=== PATIENT | female | born 1965 | race Caucasian/White ===

== ENCOUNTER 2016-10-12 08:19 | Outpatient (CLI) | payer OTHER | END 2016-10-12 08:20 | disposition home or self-care (01) | DX: I10 Essential (primary) hypertension (principal); E78.5 Hyperlipidemia, unspecified; Z00.00 Encounter for general adult medical examination without abnormal findings ==

== ENCOUNTER 2016-11-18 14:51 | Outpatient (CLI) | payer OTHER | END 2016-11-18 14:52 | disposition home or self-care (01) | DX: Z12.31 Encounter for screening mammogram for malignant neoplasm of breast (principal) ==

== ENCOUNTER 2017-03-17 22:13 | Outpatient (CLI) | payer OTHER | END 2017-03-17 22:14 | disposition home or self-care (01) | LOC: LAB.R 22:13 | PROVIDERS: ATTEND Family Medicine | DX: J02.9 Acute pharyngitis, unspecified (principal) | CPT/HCPCS: 87070; 87077 ==

== ENCOUNTER 2018-01-15 15:02 | Outpatient (CLI) | payer BC ==
--- NOTE | 2018-01-16 18:00 | Mammography Report ---
DIGITAL SCREENING MAMMOGRAM: 01/15/2018 CLINICAL INDICATION: A 52-year-old for screening. COMPARISON: 11/2016, 03/2015, 12/2013. TECHNIQUE: Routine CC and MLO projections were obtained of the breasts. FINDINGS: The breasts demonstrate fatty replacement bilaterally. Coarse and punctate, typically benign calcifications are present. No suspicious masses, clustered microcalcifications, or regions of architectural distortion are identified. IMPRESSION: BENIGN FINDINGS. RECOMMENDATION: Routine annual screening unless otherwise clinically indicated. BI-RADS category 2 benign findings. STANDARD QUALIFYING STATEMENTS 1. This examination was reviewed with the aid of Computed-Aided Detection (CAD). 2. A negative or benign imaging report should not delay biopsy if clinically suspicious findings are present. Consider surgical consultation if warranted. More than 5% of cancers are not identified by imaging. 3. Dense breasts may obscure an underlying neoplasm. TD: 01/16/2018 17:59
== END 2018-01-15 15:03 | disposition home or self-care (01) ==
LOC: DI 15:02
PROVIDERS: ATTEND Family Medicine
DX: Z12.31 Encounter for screening mammogram for malignant neoplasm of breast (principal)
CPT/HCPCS: 77067

== ENCOUNTER 2018-02-14 08:55 | Outpatient (CLI) | payer BC ==
[2018-02-14 09:10] LABS: EOSINOPHILS # (AUTO) 0.2 10^3/uL (0.0-0.7); EOSINOPHILS % (AUTO) 3.3 %; HGB - HEMOGLOBIN 14.7 g/dL (12.0-16.0); LYMPHOCYTES # (AUTO) 1.8 10^3/uL (1.5-3.5); LYMPHOCYTES % (AUTO) 36.2 %; MEAN CORPUSCULAR HEMOGLOBIN 29.4 pg (27.0-31.0); MEAN CORPUSCULAR HGB CONC 33.4 g/dL (32.0-36.0); MEAN CORPUSCULAR VOLUME 88.3 fL (81.0-99.0); MEAN PLATELET VOLUME 6.8 fL (7.9-10.8); MONOCYTES # (AUTO) 0.4 10^3/uL (0.0-1.0); MONOCYTES % (AUTO) 8.4 %; NEUTROPHILS # (AUTO) 2.5 10^3/uL (1.5-6.6); NEUTROPHILS % (AUTO) 51.1 %; PLT - PLATELET COUNT 285 10^3/uL (130-450); RED BLOOD COUNT 4.99 10^6/uL (4.20-5.40); RED CELL DISTRIBUTION WIDTH 13.5 % (12.0-15.0)
[2018-02-14 09:27] LABS: ALBUMIN 4.3 g/dL (3.2-5.5); ALBUMIN/GLOBULIN RATIO 1.4 (1.0-2.2); ALKALINE PHOSPHATASE 66 IU/L (42-121); ALT ALANINE AMINOTRANSFERASE 26 IU/L (10-60); AST ASPARTATE AMINOTRANSFERASE 23 IU/L (10-42); BILIRUBIN,TOTAL 0.6 mg/dL (0.2-1.0); BUN - BLOOD UREA NITROGEN 20 mg/dL (6-20); CALCIUM 8.9 mg/dL (8.5-10.3); CARBON DIOXIDE - CO2 27 mmol/L (21-32); CHLORIDE 102 mmol/L (101-111); CHOL/HDL RATIO 3.8 (<4.4); CHOLESTEROL 233 mg/dL; CREATININE 0.7 mg/dL (0.4-1.0); GFR - MDRD 87 (>89); GLUCOSE 111 mg/dL (70-100); HDL CHOLESTEROL 61 mg/dL; LDL CHOLESTEROL,CALCULATED 142 mg/dL; LDL/HDL RATIO 2.3 (<4.4); SODIUM 139 mmol/L (135-145); TOTAL PROTEIN 7.4 g/dL (6.7-8.2); VLDL CHOLESTEROL 30 mg/dL
[2018-02-14 09:31] LABS: HB2 TOTAL 16.8 g/dL; HEMOGLOBIN A1C 0.72 g/dL; HEMOGLOBIN A1C % 6.1 % (4.6-6.2)
== END 2018-02-14 08:56 | disposition home or self-care (01) ==
LOC: LAB 08:55
PROVIDERS: ATTEND Family Medicine
DX: I10 Essential (primary) hypertension (principal); E78.5 Hyperlipidemia, unspecified; R73.09 Other abnormal glucose
CPT/HCPCS: 36415; 80053; 80061; 83036; 83721; 85025

== ENCOUNTER 2019-04-29 08:54 | Outpatient (CLI) | payer BC ==
--- NOTE | 2019-04-29 11:39 | MRI Report ---
Reason: EYELID DROOP Procedure Date: 04/29/2019 Accession Number: [id number] / [id number] Procedure: MRI - Brain W/O CPT Code: FULL RESULT: EXAM: MRI BRAIN WITHOUT CONTRAST EXAM DATE: 04/29/2019 10:04 AM. CLINICAL HISTORY: Eyelid droop. COMPARISON: None. TECHNIQUE: Multiplanar, multisequence T1-weighted and fluid-sensitive MR sequences of the brain were performed. Sequences optimized for routine evaluation. Other: This study was protocoled on site using the institution's protocol.. IV Contrast: None. FINDINGS: The diffusion-weighted images are normal. There is no evidence of acute or subacute cerebral infarction. The axial FLAIR images demonstrate multiple punctate nonspecific T2 hyperintensities within the subcortical, deep, and periventricular white matter. These are greater in number than expected for a patient of this age. The differential diagnosis would include migraine versus premature onset of chronic small vessel ischemia versus a demyelinating process. Cerebral volume and ventricular size are normal. There is a normal appearance of the visualized portions of the course of the bilateral trigeminal nerves. There is a normal appearance of the course of the bilateral optic nerves. Cerebral volume and ventricular size are normal. There is mild mucosal thickening in the right maxillary sinus. The bilateral parotid spaces exhibit normal signal intensity. The cerebral vascular flow voids are patent. There is an extra-axial mass exhibiting T1 isointensity and small areas of calcification demonstrated over the right frontal convexity at the vertex measuring 8 x 8 x 8 mm (10, 901 and 14, 301). The T2* sequence is normal. There is no evidence of subacute or chronic hemorrhage. The cerebral vascular flow voids are patent. The optic nerves demonstrate symmetric signal intensity and size. IMPRESSION: 1. There is no evidence of acute or subacute cerebral infarction. 2. The axial FLAIR images demonstrate multiple punctate nonspecific T2 hyperintensities within the subcortical, deep, and periventricular white matter. These are greater in number than expected for a patient of this age. The differential diagnosis would include migraine versus premature onset of chronic small vessel ischemia versus a demyelinating process. 3. There is a small extra-axial mass demonstrated over the right frontal convexity exhibiting partial calcification measuring 8 x 8 x 8 mm. This combination of findings would be most consistent with a small meningioma.
== END 2019-04-29 08:55 | disposition home or self-care (01) ==
LOC: DI 08:54
PROVIDERS: ATTEND Family Medicine
DX: R90.89 Other abnormal findings on diagnostic imaging of central nervous system (principal); H02.409 Unspecified ptosis of unspecified eyelid
CPT/HCPCS: 70551

== ENCOUNTER 2019-04-29 09:09 | Outpatient (CLI) | payer BC ==
--- NOTE | 2019-04-30 08:07 | Mammography Report ---
Reason: ANNUAL MAMMOGRAM Procedure Date: 04/29/2019 Accession Number: [id number] / [id number] Procedure: NESS - Screening Mammo w/Blane CPT Code: FULL RESULT: EXAM: Screening Mammo w/Blane DATE: 04/29/2019 10:23 AM CLINICAL HISTORY: Screening encounter. TECHNIQUE: (B) - Bilateral CC, laterally exaggerated CC, MLO views were obtained. COMPARISON: 01/15/2018 through 12/27/2013. PARENCHYMAL PATTERN: (F) - The breast(s) demonstrate(s) diffuse fatty replacement. FINDINGS: There are no suspicious masses, calcifications, or areas of distortion. IMPRESSION: Negative examination. BI-RADS category 1. RECOMMENDATION: (ANNUAL) - Recommend routine annual screening mammography. BI-RADS CATEGORY: (1) - Negative. STANDARD QUALIFYING STATEMENTS: 1. This examination was not reviewed with the aid of Computer-Aided Detection (CAD). 2. A negative or benign imaging report should not preclude biopsy if clinically suspicious findings are present. 3. Dense breasts may obscure an underlying neoplasm. 4. This examination was reviewed with the aid of 3D breast imaging (tomosynthesis).
== END 2019-04-29 09:10 | disposition home or self-care (01) ==
LOC: DI 09:09
DX: Z12.31 Encounter for screening mammogram for malignant neoplasm of breast (principal)
CPT/HCPCS: 77063; 77067

== ENCOUNTER 2020-07-24 13:57 | Outpatient (CLI) | payer BC, OTHER ==
[2020-07-24 20:22] LABS: BASOPHILS % (AUTO) 0.8 %; EOSINOPHILS # (AUTO) 0.1 10^3/uL (0.0-0.7); EOSINOPHILS % (AUTO) 2.1 %; HGB - HEMOGLOBIN 13.9 g/dL (12.0-16.0); LYMPHOCYTES % (AUTO) 38.2 %; MEAN CORPUSCULAR HEMOGLOBIN 29.7 pg (27.0-31.0); MEAN CORPUSCULAR HGB CONC 33.2 g/dL (32.0-36.0); MEAN CORPUSCULAR VOLUME 89.5 fL (81.0-99.0); MEAN PLATELET VOLUME 9.3 fL (7.9-10.8); MONOCYTES # (AUTO) 0.5 10^3/uL (0.0-1.0); NEUTROPHILS # (AUTO) 2.6 10^3/uL (1.5-6.6); NEUTROPHILS % (AUTO) 49.7 %; PLT - PLATELET COUNT 314 10^3/uL (130-450); RED BLOOD COUNT 4.68 10^6/uL (4.20-5.40); RED CELL DISTRIBUTION WIDTH 12.5 % (12.0-15.0); WHITE BLOOD COUNT 5.1 x10^3/uL (4.8-10.8)
[2020-07-24 20:38] LABS: ALBUMIN 4.3 g/dL (3.2-5.5); ALBUMIN/GLOBULIN RATIO 1.4 (1.0-2.2); BILIRUBIN,TOTAL 0.5 mg/dL (0.2-1.0); CALCIUM 9.1 mg/dL (8.5-10.3); CREATININE 0.6 mg/dL (0.4-1.0); TOTAL PROTEIN 7.3 g/dL (6.7-8.2)
== END 2020-07-24 23:59 | disposition home or self-care (01) ==
LOC: LAB.S 13:57
PROVIDERS: ATTEND Physician Assistant
DX: R10.13 Epigastric pain (principal)
CPT/HCPCS: 36415; 80053; 83690; 85025

== ENCOUNTER 2021-12-05 15:40 | Outpatient (CLI) | payer OTHER ==
--- NOTE | 2021-12-05 16:26 | XRAY Report ---
PROCEDURE: Chest 2 View X-Ray INDICATIONS: COUGH TECHNIQUE: 2 view(s) of the chest. COMPARISON: Chest x-ray 03/26/2017 FINDINGS: Surgical changes and devices: None. Lungs and pleura: No pleural effusions or pneumothorax. Lungs are clear. Mediastinum: Mediastinal contours are normal. Heart size is normal. Bones and chest wall: No suspicious bony abnormalities. Soft tissues appear unremarkable. IMPRESSION: No acute pulmonary process. Reviewed by: Koki Rodriguez MD on 12/05/2021 4:25 PM PDT Approved by: Koki Rodriguez MD on 12/05/2021 4:25 PM PDT Station ID: [id number]
== END 2021-12-05 15:41 | disposition home or self-care (01) ==
LOC: DI.N 15:40
PROVIDERS: ATTEND Physician Assistant
DX: R05.1 Acute cough (principal)

== ENCOUNTER 2022-03-05 08:43 | Outpatient (CLI) | payer OTHER ==
--- NOTE | 2022-03-05 13:43 | Mammography Report ---
BILATERAL DIGITAL SCREENING MAMMOGRAM 3D/2D: 03/05/2022 CLINICAL: Routine screening. Comparison is made to exams dated: 04/29/2019 mammogram, 01/15/2018 mammogram, and 11/18/2016 mammogram - [facility]. There are scattered fibroglandular elements in both breasts. No significant masses, calcifications, or other findings are seen in either breast. There has been no significant interval change. IMPRESSION: NEGATIVE There is no mammographic evidence of malignancy. A 1 year screening mammogram is recommended. This exam was interpreted at Station ID: [id number]. NOTE: For mammograms, a report in lay terms will be sent to the patient. Approximately 15% of breast malignancies will not be visualized mammographically. In the management of a palpable breast mass, a negative mammogram must not discourage biopsy of a clinically suspicious lesion. Electronically Signed By: Fredi Cordero M.D. ar/maria del carmenrad:03/05/2022 12:01:48 ACR BI-RADS Category 1: Negative 3341F PARENCHYMAL PATTERN: (A) - The breast(s) demonstrate(s) scattered fibroglandular densities. BI-RADS CATEGORY: (1) - 1 RECOMMENDATION: (ANNUAL) - Recommend routine annual screening mammography. [id number] 1 year screening LATERALITY: (B)
== END 2022-03-05 08:44 | disposition home or self-care (01) ==
LOC: DI.S 08:43
DX: Z12.31 Encounter for screening mammogram for malignant neoplasm of breast (principal)

== ENCOUNTER 2022-11-04 07:14 | Outpatient (CLI) | payer OTHER ==
[2022-11-04 12:27] LABS: BASOPHILS # (AUTO) 0.1 10^3/uL (0.0-0.1); BASOPHILS % (AUTO) 1.1 %; EOSINOPHILS # (AUTO) 0.2 10^3/uL (0.0-0.7); EOSINOPHILS % (AUTO) 2.7 %; HGB - HEMOGLOBIN 14.5 g/dL (12.0-16.0); LYMPHOCYTES % (AUTO) 36.3 %; MEAN CORPUSCULAR HEMOGLOBIN 29.2 pg (27.0-31.0); MEAN CORPUSCULAR HGB CONC 32.2 g/dL (32.0-36.0); MEAN CORPUSCULAR VOLUME 90.5 fL (81.0-99.0); MEAN PLATELET VOLUME 9.3 fL (7.9-10.8); MONOCYTES # (AUTO) 0.5 10^3/uL (0.0-1.0); MONOCYTES % (AUTO) 9.4 %; NEUTROPHILS # (AUTO) 2.8 10^3/uL (1.5-6.6); NEUTROPHILS % (AUTO) 50.3 %; PLT - PLATELET COUNT 316 10^3/uL (130-450); RED BLOOD COUNT 4.97 10^6/uL (4.20-5.40); RED CELL DISTRIBUTION WIDTH 13.2 % (12.0-15.0); WHITE BLOOD COUNT 5.5 x10^3/uL (4.8-10.8)
[2022-11-04 13:20] LABS: ESTIMATED AVERAGE GLUCOSE 134 mg/dL (70-100); HEMOGLOBIN A1c% 6.3 % (4.27-6.07)
[2022-11-04 13:22] LABS: ALBUMIN 4.3 g/dL (3.2-5.5); ALBUMIN/GLOBULIN RATIO 1.5 (1.0-2.2); ALKALINE PHOSPHATASE 58 IU/L (42-121); ALT ALANINE AMINOTRANSFERASE 18 IU/L (10-60); AST ASPARTATE AMINOTRANSFERASE 20 IU/L (10-42); BILIRUBIN,TOTAL 0.6 mg/dL (0.2-1.0); BUN - BLOOD UREA NITROGEN 17 mg/dL (6-20); CALCIUM 9.2 mg/dL (8.5-10.3); CARBON DIOXIDE - CO2 30 mmol/L (21-32); CHLORIDE 100 mmol/L (101-111); CHOL/HDL RATIO 6.2 (<4.4); CHOLESTEROL 308 mg/dL; CREATININE 0.6 mg/dL (0.4-1.0); GFR - MDRD 102 (>89); GLUCOSE 116 mg/dL (70-100); HDL CHOLESTEROL 50 mg/dL; LDL CHOLESTEROL,CALCULATED 204 mg/dL; LDL/HDL RATIO 4.1 (<4.4); SODIUM 136 mmol/L (135-145); TOTAL PROTEIN 7.1 g/dL (6.7-8.2); TRIGLYCERIDES 268 mg/dL; VLDL CHOLESTEROL 54 mg/dL
== END 2022-11-04 07:15 | disposition home or self-care (01) ==
LOC: LAB.N 07:14
PROVIDERS: ATTEND Physician Assistant
DX: I10 Essential (primary) hypertension (principal); E78.5 Hyperlipidemia, unspecified; R73.03 Prediabetes
CPT/HCPCS: 36415; 80053; 80061; 83036; 83721; 85025

== ENCOUNTER 2023-12-15 07:31 | Outpatient (CLI) | payer OTHER ==
[2023-12-15 12:15] LABS: BASOPHILS # (AUTO) 0.1 10^3/uL (0.0-0.1); BASOPHILS % (AUTO) 1.2 %; EOSINOPHILS # (AUTO) 0.2 10^3/uL (0.0-0.7); EOSINOPHILS % (AUTO) 3.4 %; HCT - HEMATOCRIT 46.6 % (37.0-47.0); HGB - HEMOGLOBIN 14.8 g/dL (12.0-16.0); LYMPHOCYTES # (AUTO) 2.1 10^3/uL (1.5-3.5); LYMPHOCYTES % (AUTO) 35.4 %; MEAN CORPUSCULAR HEMOGLOBIN 28.6 pg (27.0-31.0); MEAN CORPUSCULAR HGB CONC 31.8 g/dL (32.0-36.0); MEAN PLATELET VOLUME 9.4 fL (7.9-10.8); MONOCYTES # (AUTO) 0.5 10^3/uL (0.0-1.0); MONOCYTES % (AUTO) 8.1 %; NEUTROPHILS % (AUTO) 51.6 %; PLT - PLATELET COUNT 316 10^3/uL (130-450); RED BLOOD COUNT 5.18 10^6/uL (4.20-5.40); RED CELL DISTRIBUTION WIDTH 12.3 % (12.0-15.0); WHITE BLOOD COUNT 5.8 x10^3/uL (4.8-10.8)
[2023-12-15 12:23] LABS: ALBUMIN 4.3 g/dL (3.2-5.5); ALBUMIN/GLOBULIN RATIO 1.8 (1.0-2.2); ALKALINE PHOSPHATASE 71 IU/L (42-121); ALT ALANINE AMINOTRANSFERASE 18 IU/L (10-60); AST ASPARTATE AMINOTRANSFERASE 16 IU/L (10-42); BILIRUBIN,TOTAL 0.4 mg/dL (0.2-1.0); BUN - BLOOD UREA NITROGEN 17 mg/dL (6-20); CALCIUM 9.8 mg/dL (8.5-10.3); CARBON DIOXIDE - CO2 26 mmol/L (21-32); CHLORIDE 106 mmol/L (101-111); CHOLESTEROL 209 mg/dL; CREATININE 0.8 mg/dL (0.6-1.3); GFR - MDRD 73 (>89); GLUCOSE 135 mg/dL (74-104); HDL CHOLESTEROL 52 mg/dL; LDL CHOLESTEROL,CALCULATED 103 mg/dL; SODIUM 139 mmol/L (135-145); TOTAL PROTEIN 6.7 g/dL (6.4-8.9); TRIGLYCERIDES 272 mg/dL (48-352); VLDL CHOLESTEROL 54 mg/dL
== END 2023-12-15 07:32 | disposition home or self-care (01) ==
LOC: LAB.N 07:31
PROVIDERS: ATTEND Physician Assistant
DX: I10 Essential (primary) hypertension (principal); E78.5 Hyperlipidemia, unspecified
CPT/HCPCS: 36415; 80053; 80061; 83721; 85025

== ENCOUNTER 2024-03-08 14:57 | Outpatient (CLI) | payer OTHER ==
--- NOTE | 2024-03-10 08:39 | Mammography Report ---
BILATERAL DIGITAL SCREENING MAMMOGRAM 3D/2D: 03/08/2024 CLINICAL: Routine screening. Comparison is made to exams dated: 03/05/2022 mammogram, 04/29/2019 mammogram, 01/15/2018 mammogram, 11/18 mammogram, and 03/28/2015 mammogram - [facility]. Both breasts are almost entirely fatty (category a/<25% glandular tissue). No significant masses, calcifications, or other findings are seen in either breast. There has been no significant interval change. IMPRESSION: NEGATIVE There is no mammographic evidence of malignancy. A 1 year screening mammogram is recommended. Based on the Tyrer Cuzick model (a risk assessment model) the patient's lifetime risk is 4.4% and her 10 year risk is 1.8%. According to the ACR, ACS, and NCCN guidelines, an annual breast MRI exam francisco g with mammogram is recommended if the patient's lifetime risk is 20% or greater. This exam was interpreted at Station ID: [id number]. NOTE: For mammograms, a report in lay terms will be sent to the patient. Approximately 15% of breast malignancies will not be visualized mammographically. In the management of a palpable breast mass, a negative mammogram must not discourage biopsy of a clinically suspicious lesion. Electronically Signed By: Keira funes/gretel:03/09/2024 08:46:11 letter sent: No_Letter ACR BI-RADS Category 1: Negative 3341F PARENCHYMAL PATTERN: (F) - The breast(s) demonstrate(s) diffuse fatty replacement. BI-RADS CATEGORY: (1) - 1 RECOMMENDATION: (ANNUAL) - Recommend routine annual screening mammography. [id number] 1 year screening LATERALITY: (B)
== END 2024-03-08 14:58 | disposition home or self-care (01) ==
LOC: DI 14:57
DX: Z12.31 Encounter for screening mammogram for malignant neoplasm of breast (principal)

== ENCOUNTER 2024-04-21 08:25 | Outpatient (CLI) | payer OTHER ==
[2024-04-21 12:50] LABS: BUN - BLOOD UREA NITROGEN 17 mg/dL (6-20); CALCIUM 9.8 mg/dL (8.5-10.3); CARBON DIOXIDE - CO2 30 mmol/L (21-32); CHLORIDE 104 mmol/L (101-111); CHOL/HDL RATIO 3.3 (<4.4); CHOLESTEROL 158 mg/dL; CREATININE 0.6 mg/dL (0.6-1.3); GFR - MDRD 102 (>89); GLUCOSE 122 mg/dL (74-104); HDL CHOLESTEROL 48 mg/dL; LDL CHOLESTEROL,CALCULATED 66 mg/dL; LDL/HDL RATIO 1.4 (<4.4); POTASSIUM 4.1 mmol/L (3.5-4.5); SODIUM 139 mmol/L (135-145); TRIGLYCERIDES 221 mg/dL; VLDL CHOLESTEROL 44 mg/dL
[2024-04-21 12:57] LABS: ESTIMATED AVERAGE GLUCOSE 126 mg/dL (70-100)
[2024-04-21 13:07] LABS: CREATININE,URINE 72.6 mg/dL
[2024-04-21 13:14] LABS: MICROALBUMIN,URINE < 0.7 mg/dL
== END 2024-04-21 08:26 | disposition home or self-care (01) ==
LOC: LAB.N 08:25
PROVIDERS: ATTEND Physician Assistant
DX: E11.9 Type 2 diabetes mellitus without complications (principal)
CPT/HCPCS: 36415; 80048; 80061; 82043; 82570; 83036; 83721

== ENCOUNTER 2024-04-28 06:17 | Day surgery (SDC) | payer OTHER ==
[2024-04-28] MEDS: LACTATED RINGERS 1,000 ML IV ONE ×2 (06:25→08:02)
--- NOTE | 2024-04-28 06:28 | HISTORY & PHYSICAL EXAMINATION ---
PMH/PSH - Past Medical History Cardiovascular: positive: Hypertension, High cholesterol Respiratory: positive: None Endocrine/Autoimmune: positive: Type 2 diabetes GI: positive: GERD, Colon polyps : positive: Other HEENT: positive: Chronic vision loss Psych: positive: Depression, Anxiety, Other Musculoskeletal: positive: Chronic back pain Derm: positive: None MRSA Hx?: No - Past Surgical History General: positive: Cholecystectomy, Colonoscopy Ortho: positive: Arthroscopic surgery, Other Meds/Allgy - Home Medications Home Medications: Ambulatory Orders Medication Instructions Recorded Confirmed Losartan Potassium 50 mg PO DAILY 06/14/19 04/20/24 Sertraline HCl 100 mg PO DAILY 06/14/19 04/20/24 Atorvastatin Calcium 40 mg PO HS 03/03/24 04/20/24 Omeprazole 20 mg PO HS 03/03/24 04/20/24 Ibuprofen [Motrin] 400 mg PO BID 04/20/24 04/20/24 - Allergies Allergies/Adverse Reactions: Allergies Allergy/AdvReac Type Severity Reaction Status Date / Time No Known Drug Allergies Allergy Verified 04/27/24 12:45 Impression/Plan - Problem List Problem List: Pre-op H&P I am asked to see Romina for a screening colonoscopy examination. GI symptoms: Family history of colon cancer/polyps: - Personal history of colon polyps: + Last colonoscopy examination: 5 years ago Anticoagulant use: No Meds: See list Allergies: No PMH: HTN, Hyperlipidemia PSH: Gallbladder, shoulder surgery SH: Cig No ETOH No The Past Family, Social and Personal History has been reviewed with the patient. ROS Denies fevers, chills, night sweats, shortness of breath, chest pain, change in the color of skin or urine, diarrhea, constipation, hematemesis, hematochezia, headache, visual changes, muscle aches. PE VSS, Afeb HEENT: Pupils equal, round and reactive to light, sclera anicteric, normal hea ring, oral mucous membranes moist and without lesions NECK: Supple without lymphadenopathy, thyromegaly or carotid bruits LUNGS: Clear to auscultation without wheezing HEART: NSR without murmurs CHEST: Equal and symmetric expansion, no rib pain ABD: Soft, nontender, no hepatosplenomegaly, no hernias GROIN: No hernias or lymphadenopathy EXTREMITIES: Normal neuro and muscular exam SKIN: Anicteric Radiologic Studies N/A Assessment: Request for a screening colonoscopy examination. Plan: Screening colonoscopy under sedation through the Day Surgery admission protocol at [facility]. Consent: Romina has been counseled for the procedure, it's indications, risks, benefits and expected outcome as well as alternative therapies. We specifically discussed risks associated with anesthesia and insertion of the endoscope into the large intestine which includes bleeding and injury to the colon which may require surgical intervention. Romina understands, agrees, and consents to the proposed operative strategy and requests that we proceed with the procedure as outlined in our discussion. Eliu Turner MD, [facility] General Surgery Service
[2024-04-28] MEDS ORDERED: PROPOFOL 500 MG/50 ML 500 MG/50 ML VIAL ONE (06:53)
[2024-04-28] MEDS ORDERED: LIDOCAINE-MPF 2% 5 ML VIAL ONE (06:55)
--- NOTE | 2024-04-28 07:15 | ANESTHESIA ---
Pre-Anesthesia VS, & Labs - Diagnosis screening - Procedure colonoscopy Vital Signs: Temp Pulse Resp BP Pulse Ox O2 Flow Rate 36.2 C L 81 16 127/75 97 04/28/24 06:25 04/28/24 06:25 04/28/24 06:25 04/28/24 06:25 04/28/24 06:25 Height: 5 ft 2 in Weight (kg): 74.4 kg Body Mass Index: 29.9 BMI Classification: Overweight - NPO >8 hours - Is Patient ?: No - Lab Results Current Lab Results: Laboratory Tests 04/28/24 06:44: POC Whole Bld Glucose 129 H Lab results reviewed: Yes Home Medications and Allergies Home Medications: Ambulatory Orders Ibuprofen [Motrin] 400 mg PO BID 04/20/24 Losartan Potassium 50 mg PO DAILY 06/14/19 Sertraline HCl 100 mg PO DAILY 06/14/19 Atorvastatin Calcium 40 mg PO HS 03/03/24 Omeprazole 20 mg PO HS 03/03/24 Ibuprofen [Motrin] 400 mg PO BID 04/20/24 Allergies/Adverse Reactions: Allergies Allergy/AdvReac Type Severity Reaction Status Date / Time No Known Drug Allergies Allergy Verified 04/27/24 12:45 Anes History & Medical History - Anesthetic History Anesthesia Complications: reports: No previous complications Family history of Anesthesia Complications: Denies Family history of Malignant Hyperthermia: Denies - Medical History Cardiovascular: reports: Hypertension, High cholesterol Pulmonary: reports: None Gastrointestinal: reports: GERD, Colon polyps Urinary: reports: Other Musculoskeletal: reports: Chronic back pain Endocrine/Autoimmune: reports: Type 2 diabetes Skin: reports: None - Surgical History General: reports: Cholecystectomy, Colonoscopy Orthopedic: reports: Arthroscopic surgery, Other Exam General: Alert, Oriented x3, Cooperative Dental: WNL Mouth Openin Fingerbreadth Neck Mobility: Normal Mallampati classification: II Thyromental Distance: 4-6 cm Respiratory: Lungs clear, Normal breath sounds, No respiratory distress Cardiovascular: Regular rate Neurological: Normal speech Mental/Cognitive Status: Alert/Oriented X3, Normal for patient Cognitive Status: Within normal limits Plan Anesthesia Type: Total IV Consent for Procedure(s) Verified and Reviewed: Yes Code Status: Attempt Resuscitation ASA classification: 2-Mild systemic disease Is this case an emergency?: No
[2024-04-28] MEDS: SIMETHICONE 40 MG/0.6 ML 30 ML BOTTLE PO ONE (07:47)
[2024-04-28] MEDS ORDERED: SIMETHICONE 40 MG/0.6 ML 30 ML BOTTLE ONE (07:56)
[2024-04-28 08:21] VITALS: O2SAT 95
[2024-04-28 08:32] VITALS: BP 109/58
--- NOTE | 2024-04-28 08:54 | ANESTHESIA POST OP EVALUATION ---
Anesthesia Post Eval - Post Anesthesia Eval Vitals: Last Vital Signs Temp 36.2 C L 04/28/24 08:21 Pulse 64 04/28/24 08:21 Resp 14 04/28/24 08:21 BP 109/58 L 04/28/24 08:21 Pulse Ox 95 04/28/24 08:21 O2 Flow Rate CV Function Including HR & BP: Stable Pain Control: Satisfactory Nausea & Vomiting: Negative Mental Status: Baseline Respiratory Status: Airway Patent Hydration Status: Satisfactory Anesthesia Complications: None
== END 2024-04-28 06:18 | disposition home or self-care (01) ==
LOC: SDS 06:17
PROVIDERS: ATTEND Surgery
DX: Z12.11 Encounter for screening for malignant neoplasm of colon (principal); E11.9 Type 2 diabetes mellitus without complications; I10 Essential (primary) hypertension; Z86.010 Personal history of colon polyps
CPT/HCPCS: 45378; A9270; J7120